=== PATIENT | male | born 1950 | race Caucasian/White ===

== ENCOUNTER 2018-10-16 21:39 | Inpatient (IN) | payer MEDICARE, MEDICAID ==
--- NOTE | 2018-10-16 21:59 | ED Physician Chart ---
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 Allergies:: Allergies Allergy/AdvReac Type Severity Reaction Status Date / Time haloperidol Allergy Unknown Verified 09/27/18 21:10 divalproex sodium Allergy Verified 09/26/18 19:13 [From Depakote] ED Review of Systems - Review of Systems General/Constitutional: No fever, No chills, No weight loss, No weakness, No diaphoresis, No edema, No loss of appetite Skin: No skin lesions, No rash, No bruising Head: No headache, No light-headedness Eyes: No loss of vision, No pain, No diplopia ENT: No earache, No nasal drainage, No sore throat, No tinnitus Neck: No neck pain, No swelling, No thyromegaly, No stiffness, No mass noted Cardio Vascular: No chest pain, No palpitations, No PND, No orthopnea, No edema Pulmonary: No SOB, No cough, No sputum, No wheezing GI: No nausea, No vomiting, No diarrhea, No pain, No melena, No hematochezia, No constipation, No hematemesis G/U: No dysuria, No frequency, No hematuria Musculoskeletal: No bone or joint pain, No back pain, No muscle pain Endocrine: No polyuria, No polydipsia Psychiatric: No prior psych history, No depression, No anxiety, No suicidal ideation Hematopoietic: No bruising, No lymphadenopathy Allergic/Immuno: No urticaria, No angioedema Neurological: No syncope, No focal symptoms, No weakness, No paresthesia, No headache, No seizure, No dizziness, No confusion, No vertigo ED Past Medical History - Past Medical History Past Medical History: HTN, DM, Other (bipolar disorder) ED Physical Exam - Physical Examination General/Constitutional: Awake, Well-developed, well-nourished, Alert, No distress, GCS 15, Non-toxic appearing, Ambulatory Head: Atraumatic Eyes: Lids, conjuctiva normal, PERRL, EOMI Skin: Nl inspection, No rash, No skin lesions, No ecchymosis, Well hydrated, No lymphadenopathy ENMT: External ears, nose nl, Nasal exam nl, Lips, teeth, gums nl Neck: Nontender, Full ROM w/o pain, No JVD, No nuchal rigidity, No bruit, No mass, No stridor Respiratory: Nl effort/Exclusion, Clear to Auscultation, No Wheeze/Rhonchi/Rales Cardio Vascular: RRR, No murmur, gallop, rubs, NL S1 S2 GI: No tenderness/rebounding/guarding, No organomegaly, No hernia, Normal BS's, Nondistended, No mass/bruits, No McBurney tenderness : No CVA tenderness Extremities: No tenderness or effusion, Full ROM, normal strength in all extremities, No edema, Normal digits & nails Neuro/Psych: Alert/oriented, DTR's symmetric, Normal sensory exam, Normal motor strength, Judgement/insight normal, Mood normal, Normal gait, No focal deficits Misc: Normal back, No paraspinal tenderness ED Assessment - Assessment General Assessment: bipolar disorder agitation for [facility] [place] ED Septic Shock - . Is Septic Shock (SBP<90, OR Lactate>4 mmol\L) present?: No ED Reassessment (Disposition) - Diagnosis Diagnosis:: bipolar disorder psychosis - Patient Disposition Discharge/Transfer:: Acute Care w/in this hosp Admitted to:: Med/Surg Condition at Disposition:: Stable
[2018-10-16 22:30] LABS: URINE SOURCE CLEAN C
[2018-10-16 22:33] LABS: URINE BILIRUBIN NEGATIVE (NEGATIVE); URINE BLOOD NEGATIVE (NEGATIVE); URINE GLUCOSE (UA) NEGATIVE (NEGATIVE); URINE KETONE NEGATIVE (NEGATIVE); URINE LEUKOCYTE ESTERASE SMALL (NEGATIVE); URINE NITRATE NEGATIVE (NEGATIVE); URINE PH 6.5 (4.6 - 8.0); URINE PROTEIN NEGATIVE (NEGATIVE); URINE UROBILINOGEN 0.2 E.U./dL (0.2 - 1.0)
[2018-10-16 23:09] LABS: URINE CLARITY SLIGHT HAZY (CLEAR); URINE COLOR YELLOW
[2018-10-16 23:16] LABS: URINE BACTERIA NONE SEEN /hpf (NONE SEEN); URINE EPITHELIAL CELLS NONE SEEN /lpf (FEW); URINE RBC NONE SEEN /hpf (0-5); URINE WBC 0-2 /hpf (0-5)
[2018-10-16 23:17] LABS: URINE MICROSCOPIC INDICATED? YES
[2018-10-17 02:09] VITALS: BP 112/73
[2018-10-17 06:54] LABS: % BASOPHILS 0.1 % (0.0-2.0); % EOSINOPHILS 2.6 % (0.0-5.0); % LYMPHOCYTES 39.9 % (20.0-50.0); % MONOCYTES 9.6 % (2.0-10.0); % NEUTROPHILS 47.8 % (40.0-80.0); EOSINOPHILE ABSOLUTE 0.2 Th/cmm (0.1-0.4); HEMATOCRIT 45.8 % (41.0-60); LYMPHOCYTE ABSOLUTE 2.9 Th/cmm (1.5-3.0); MEAN CELL VOLUME 88.7 fl (80-99); MEAN CORPUSCULAR HGB CONC 32.7 pg (28.0-36.0); MONOCYTE ABSOLUTE 0.7 Th/cmm (0.3-1.0); NEUTROPHILE ABSOLUTE 3.5 Th/cmm (1.8-8.0); PLATELET COUNT 285 Th/cmm (150-400); RED BLOOD COUNT 5.17 Mil/cmm (3.80-5.80); RED CELL DISTRIBUTION WIDTH 12.3 % (11.5-20.0); WHITE BLOOD COUNT 7.3 Th/cmm (4.8-10.8)
[2018-10-17 06:59] LABS: ALB/GLOB RATIO 1.4 (1.0-1.8); ALBUMIN 3.7 gm/dL (4.2-5.5); ALKALINE PHOSPHATASE 74 U/L (34-104); ANION GAP 8.4 (7.0-16.0); BILIRUBIN,TOTAL 0.3 mg/dL (0.3-1.0); BUN - UREA NITROGEN 13 mg/dL (7-25); CALCIUM SERUM 8.8 mg/dL (8.6-10.3); CARBON DIOXIDE 29.8 mEq/L (21.0-31.0); CHLORIDE 107 mEq/L (98-107); CREATININE - SERUM 0.8 mg/dL (0.7-1.3); GFR AFRICAN-AMERICAN > 60.0 ml/min (>90); GFR NON AFRICAN-AMERICAN > 60.0 ml/min; GLUCOSE 101 mg/dL (70-105); POTASSIUM SERUM 4.2 mEq/L (3.5-5.1); SGOT 11 U/L (13-39); SGPT/ALT 8 U/L (7-52); SODIUM SERUM 141 mEq/L (136-145); TOTAL PROTEIN,SERUM 6.3 gm/dL (6.0-8.3)
[2018-10-17] MEDS: Multivitamin w/ Minerals Tab PO SCH (08:25)
[2018-10-17] MEDS ORDERED: Non-Formulary Item 1 EA (Aripiprazole [Abilify] 20 MG) PO SCH (21:00)
--- NOTE | 2018-10-18 05:39 | Psychiatric Evaluation ---
DATE OF SERVICE: 10/17/2018 IDENTIFYING DATA: The patient is a 67-year-old male resident of a correction facility. Information obtained by directly interviewing the patient as well as reviewing the admission papers. JUSTIFICATION FOR HOSPITALIZATION: The patient is admitted here for his acute mood swings and psychosis. CHIEF COMPLAINT: "I don't care." HISTORY OF PRESENT ILLNESS: This is one of multiple psychiatric hospitalizations for this patient, who has been diagnosed to have schizoaffective disorder and has been under my care and was recently discharged and placed in a correction facility, but following the discharge, the patient is reported to be still testing the limits and has not been able to contact with safety. The patient has been screaming and yelling. Since the discharge on 10/05/2018 and hence the patient has to be admitted for stabilization. PAST PSYCHIATRIC HISTORY: Please refer to the above. The patient has been diagnosed to have schizoaffective disorder and had been followed up by me on an outpatient basis. MEDICAL HISTORY: Physical examination is requested to be done by Dr. Chau. SUBSTANCE ABUSE HISTORY: None. PHYSICAL OR SEXUAL ABUSE HISTORY: None. LEGAL PROBLEMS: None at this time. STRENGTH AND ASSETS: The patient is in good physical health. MENTAL STATUS EXAMINATION: The patient is a 67-year-old, looking his stated age, superficially cooperative, sexually preoccupied. Speech is noted to be pressured. Insight and judgment are very much impaired. Impulse control is very poor. The patient is hyperactive. The patient has no insight into his illness. Coping skills are noted to be extremely poor at this time. The patient has been testing the limits. The patient is very demanding and has been verbally abusive towards the staff members. The patient is alert and oriented x 3. Attention span and concentration are noted to be poor. The patient is not able to answer the questions that are asked to him. The patient has been going on a tangent. The patient's behavior is ____ danger to self and others at this time. DIAGNOSTIC IMPRESSION: AXIS I: Schizoaffective disorder. AXIS II: None. AXIS III: As per Dr. Chau. IMMEDIATE TREATMENT PLAN: The patient is going to be observed on inpatient unit, provided with supportive psychotherapy. The patient is going to be closely monitored. The patient is going to be stabilized. Once the patient is stabilized, the patient is going to be discharged back to the facility for followup on outpatient basis. JOB# [id number]
[2018-10-18] MEDS: Multivitamin w/ Minerals Tab PO SCH (07:59)
[2018-10-18 09:00] LABS: CHOLESTEROL 101 mg/dL (<200); HDL -HIGH DENSITY LIPOPROTEIN 36 mg/dL (23-92); TRIGLYCERIDES 105 mg/dL (<150)
--- NOTE | 2018-10-18 12:08 | Internal Medicine Prog Note ---
Internal Medicine Subjective - Subjective Patient seen and examined:: chart reviewed Patient is:: awake, agitated Per staff patient has:: no adverse event, no episodes of fall Internal Medicine Objective - Results Result Diagrams: 10/17/18 06:11 10/17/18 06:11 Recent Labs: Laboratory Last Values WBC 7.3 Th/cmm (4.8-10.8) 10/17/18 06:11 RBC 5.17 Mil/cmm (3.80-5.80) 10/17/18 06:11 Hgb 15.0 gm/dL (12-16) 10/17/18 06:11 Hct 45.8 % (41.0-60) 10/17/18 06:11 MCV 88.7 fl (80-99) 10/17/18 06:11 MCH 29.0 pg (27.0-31.0) 10/17/18 06:11 MCHC Differential 32.7 pg (28.0-36.0) 10/17/18 06:11 RDW 12.3 % (11.5-20.0) 10/17/18 06:11 Plt Count 285 Th/cmm (150-400) 10/17/18 06:11 MPV 8.0 fl 10/17/18 06:11 Neutrophils % 47.8 % (40.0-80.0) 10/17/18 06:11 Lymphocytes % 39.9 % (20.0-50.0) 10/17/18 06:11 Monocytes % 9.6 % (2.0-10.0) 10/17/18 06:11 Eosinophils % 2.6 % (0.0-5.0) 10/17/18 06:11 Basophils % 0.1 % (0.0-2.0) 10/17/18 06:11 Sodium 141 mEq/L (136-145) 10/17/18 06:11 Potassium 4.2 mEq/L (3.5-5.1) 10/17/18 06:11 Chloride 107 mEq/L (98-107) 10/17/18 06:11 Carbon Dioxide 29.8 mEq/L (21.0-31.0) 10/17/18 06:11 Anion Gap 8.4 (7.0-16.0) 10/17/18 06:11 BUN 13 mg/dL (7-25) 10/17/18 06:11 Creatinine 0.8 mg/dL (0.7-1.3) 10/17/18 06:11 Est GFR ( Amer) > 60.0 ml/min (>90) 10/17/18 06:11 Est GFR (Non-Af Amer) > 60.0 ml/min 10/17/18 06:11 BUN/Creatinine Ratio 16.3 10/17/18 06:11 Glucose 101 mg/dL (70-105) 10/17/18 06:11 Calcium 8.8 mg/dL (8.6-10.3) 10/17/18 06:11 Total Bilirubin 0.3 mg/dL (0.3-1.0) 10/17/18 06:11 AST 11 U/L (13-39) L 10/17/18 06:11 ALT 8 U/L (7-52) 10/17/18 06:11 Alkaline Phosphatase 74 U/L (34-104) 10/17/18 06:11 Total Protein 6.3 gm/dL (6.0-8.3) 10/17/18 06:11 Albumin 3.7 gm/dL (4.2-5.5) L 10/17/18 06:11 Globulin 2.6 gm/dL 10/17/18 06:11 Albumin/Globulin Ratio 1.4 (1.0-1.8) 10/17/18 06:11 Triglycerides 105 mg/dL (<150) 10/18/18 08:35 Cholesterol 101 mg/dL (<200) 10/18/18 08:35 LDL Cholesterol Direct 63 mg/dL (75-193) L 10/18/18 08:35 HDL Cholesterol 36 mg/dL (23-92) 10/18/18 08:35 Urine Source CLEAN C 10/16/18 22:00 Urine Color YELLOW 10/16/18 22:00 Urine Clarity SLIGHT HAZY (CLEAR) 10/16/18 22:00 Urine pH 6.5 (4.6 - 8.0) 10/16/18 22:00 Ur Specific [place] 1.015 (1.005-1.030) 10/16/18 22:00 Urine Protein NEGATIVE mg/dL (NEGATIVE) 10/16/18 22:00 Urine Glucose (UA) NEGATIVE mg/dL (NEGATIVE) 10/16/18 22:00 Urine Ketones NEGATIVE mg/dL (NEGATIVE) 10/16/18 22:00 Urine Blood NEGATIVE (NEGATIVE) 10/16/18 22:00 Urine Nitrate NEGATIVE (NEGATIVE) 10/16/18 22:00 Urine Bilirubin NEGATIVE (NEGATIVE) 10/16/18 22:00 Urine Urobilinogen 0.2 E.U./dL (0.2 - 1.0) 10/16/18 22:00 Ur Leukocyte Esterase SMALL (NEGATIVE) H 10/16/18 22:00 Urine RBC NONE SEEN /hpf (0-5) 10/16/18 22:00 Urine WBC 0-2 /hpf (0-5) 10/16/18 22:00 Ur Epithelial Cells NONE SEEN /lpf (FEW) 10/16/18 22:00 Other Crystals Not Reportable 10/16/18 22:00 Urine Bacteria NONE SEEN /hpf (NONE SEEN) 10/16/18 22:00 - Physical Exam Vitals and I&O: Vital Signs Temp 97.7 F 10/18/18 06:46 Pulse 87 10/18/18 06:46 Resp 20 10/18/18 08:00 BP 110/77 10/18/18 06:46 Pulse Ox 97 10/18/18 06:46 Intake & Output 10/17/18 10/18/18 10/18/18 18:59 06:59 18:59 Intake Total 900 120 Balance 900 120 Intake: Oral 900 120 Other: # Voids 3 3 # Bowel Movements 1 Active Medications: Current Medications Acetaminophen (Tylenol) 650 mg PO Q4H PRN PRN Reason: Pain Or Fever above 101 Stop: 12/16/18 02:26 Aripiprazole (Abilify) 15 mg PO HS CHRISTY; Protocol Stop: 12/16/18 20:59 Last Admin: 10/17/18 21:45 Dose: Not Given Clonazepam (Klonopin) 0.5 mg PO BID CHRISTY; Protocol Stop: 12/16/18 08:59 Last Admin: 10/18/18 07:59 Dose: 0.5 mg Lorazepam (Ativan) 1 mg PO Q12HR PRN; Protocol PRN Reason: Agitation Stop: 12/16/18 02:26 Temazepam (Restoril) 15 mg PO HS PRN; Protocol PRN Reason: Insomnia Stop: 12/16/18 15:38 General: demented HEENT: NC/AT Neck: Supple Lungs: CTAB Cardiovascular: RRR, Normal S1, Normal S2 Abdomen: soft Extremities: clear Neurological: no change Internal Medicine Assmt/Plan - Assessment Assessment: schizoaffective disorder - Plan Plan: as per psych will monitor
--- NOTE | 2018-10-18 21:50 | Progress Notes ---
DATE: 10/18/2018 SUBJECTIVE: Staff was spoken to. The patient is interviewed. Mood is noted to be irritable. Affect is constricted. Insight and judgment are noted to be still impaired. Impulse control is noted to be poor. The patient is reporting that he is compliant with the medication and he has a place to go. He states that he wants to go to a board and care in [place]. The patient is currently on Abilify and temazepam and has been able to tolerate the medication. ASSESSMENT: The patient is still impulsive and having acute mood swings. PLAN: Continue the patient with the current medications and I encouraged the patient to verbalize the concerns rather than to act out. The patient is not ready to be discharged to a lower level of care yet. JOB# [id number]
[2018-10-19] MEDS: Multivitamin w/ Minerals Tab PO SCH (08:18)
--- NOTE | 2018-10-19 12:45 | Internal Medicine Prog Note ---
Internal Medicine Subjective - Subjective Service Date: 10/19/18 Patient seen and examined:: chart reviewed Patient is:: awake, verbal, agitated, other (Mood swings and Psychotic.) Patient Complaints of:: other (patient is combative.) Per staff patient has:: no adverse event, no episodes of fall Internal Medicine Objective - Results Result Diagrams: 10/17/18 06:11 10/17/18 06:11 Recent Labs: Laboratory Last Values WBC 7.3 Th/cmm (4.8-10.8) 10/17/18 06:11 RBC 5.17 Mil/cmm (3.80-5.80) 10/17/18 06:11 Hgb 15.0 gm/dL (12-16) 10/17/18 06:11 Hct 45.8 % (41.0-60) 10/17/18 06:11 MCV 88.7 fl (80-99) 10/17/18 06:11 MCH 29.0 pg (27.0-31.0) 10/17/18 06:11 MCHC Differential 32.7 pg (28.0-36.0) 10/17/18 06:11 RDW 12.3 % (11.5-20.0) 10/17/18 06:11 Plt Count 285 Th/cmm (150-400) 10/17/18 06:11 MPV 8.0 fl 10/17/18 06:11 Neutrophils % 47.8 % (40.0-80.0) 10/17/18 06:11 Lymphocytes % 39.9 % (20.0-50.0) 10/17/18 06:11 Monocytes % 9.6 % (2.0-10.0) 10/17/18 06:11 Eosinophils % 2.6 % (0.0-5.0) 10/17/18 06:11 Basophils % 0.1 % (0.0-2.0) 10/17/18 06:11 Sodium 141 mEq/L (136-145) 10/17/18 06:11 Potassium 4.2 mEq/L (3.5-5.1) 10/17/18 06:11 Chloride 107 mEq/L (98-107) 10/17/18 06:11 Carbon Dioxide 29.8 mEq/L (21.0-31.0) 10/17/18 06:11 Anion Gap 8.4 (7.0-16.0) 10/17/18 06:11 BUN 13 mg/dL (7-25) 10/17/18 06:11 Creatinine 0.8 mg/dL (0.7-1.3) 10/17/18 06:11 Est GFR ( Amer) > 60.0 ml/min (>90) 10/17/18 06:11 Est GFR (Non-Af Amer) > 60.0 ml/min 10/17/18 06:11 BUN/Creatinine Ratio 16.3 10/17/18 06:11 Glucose 101 mg/dL (70-105) 10/17/18 06:11 Calcium 8.8 mg/dL (8.6-10.3) 10/17/18 06:11 Total Bilirubin 0.3 mg/dL (0.3-1.0) 10/17/18 06:11 AST 11 U/L (13-39) L 10/17/18 06:11 ALT 8 U/L (7-52) 10/17/18 06:11 Alkaline Phosphatase 74 U/L (34-104) 10/17/18 06:11 Total Protein 6.3 gm/dL (6.0-8.3) 10/17/18 06:11 Albumin 3.7 gm/dL (4.2-5.5) L 10/17/18 06:11 Globulin 2.6 gm/dL 10/17/18 06:11 Albumin/Globulin Ratio 1.4 (1.0-1.8) 10/17/18 06:11 Triglycerides 105 mg/dL (<150) 10/18/18 08:35 Cholesterol 101 mg/dL (<200) 10/18/18 08:35 LDL Cholesterol Direct 63 mg/dL (75-193) L 10/18/18 08:35 HDL Cholesterol 36 mg/dL (23-92) 10/18/18 08:35 Urine Source CLEAN C 10/16/18 22:00 Urine Color YELLOW 10/16/18 22:00 Urine Clarity SLIGHT HAZY (CLEAR) 10/16/18 22:00 Urine pH 6.5 (4.6 - 8.0) 10/16/18 22:00 Ur Specific [place] 1.015 (1.005-1.030) 10/16/18 22:00 Urine Protein NEGATIVE mg/dL (NEGATIVE) 10/16/18 22:00 Urine Glucose (UA) NEGATIVE mg/dL (NEGATIVE) 10/16/18 22:00 Urine Ketones NEGATIVE mg/dL (NEGATIVE) 10/16/18 22:00 Urine Blood NEGATIVE (NEGATIVE) 10/16/18 22:00 Urine Nitrate NEGATIVE (NEGATIVE) 10/16/18 22:00 Urine Bilirubin NEGATIVE (NEGATIVE) 10/16/18 22:00 Urine Urobilinogen 0.2 E.U./dL (0.2 - 1.0) 10/16/18 22:00 Ur Leukocyte Esterase SMALL (NEGATIVE) H 10/16/18 22:00 Urine RBC NONE SEEN /hpf (0-5) 10/16/18 22:00 Urine WBC 0-2 /hpf (0-5) 10/16/18 22:00 Ur Epithelial Cells NONE SEEN /lpf (FEW) 10/16/18 22:00 Other Crystals Not Reportable 10/16/18 22:00 Urine Bacteria NONE SEEN /hpf (NONE SEEN) 10/16/18 22:00 - Physical Exam Vitals and I&O: Vital Signs Temp 98.0 F 10/18/18 21:02 Pulse 74 10/18/18 21:02 Resp 20 10/18/18 21:02 BP 117/73 10/18/18 21:02 Pulse Ox 99 10/18/18 21:02 Intake & Output 10/18/18 10/19/18 10/19/18 18:59 06:59 18:59 Intake Total 1700 180 Balance 1700 180 Intake: Oral 1700 180 Other: # Voids 4 1 # Bowel Movements 2 0 Active Medications: Current Medications Acetaminophen (Tylenol) 650 mg PO Q4H PRN PRN Reason: Pain Or Fever above 101 Stop: 12/16/18 02:26 Last Admin: 10/18/18 20:37 Dose: 650 mg Aripiprazole (Abilify) 15 mg PO HS CHRISTY; Protocol Stop: 12/16/18 20:59 Last Admin: 10/18/18 20:37 Dose: 15 mg Clonazepam (Klonopin) 0.5 mg PO BID CHRISTY; Protocol Stop: 12/16/18 08:59 Last Admin: 10/19/18 08:21 Dose: Not Given Lorazepam (Ativan) 1 mg PO Q12HR PRN; Protocol PRN Reason: Agitation Stop: 12/16/18 02:26 Last Admin: 10/19/18 08:19 Dose: 1 mg Temazepam (Restoril) 15 mg PO HS PRN; Protocol PRN Reason: Insomnia Stop: 12/16/18 15:38 General: demented HEENT: NC/AT Neck: Supple Lungs: CTAB Cardiovascular: RRR, Normal S1, Normal S2 Abdomen: soft Extremities: clear Neurological: no change Internal Medicine Assmt/Plan - Assessment Assessment: Schizoaffective disorder Mood swings and Psychosis. - Plan Plan: as per psych will monitor Nutritional Asmnt/Malnutr-PDOC - Dietary Evaluation Malnutrition Findings (Please click <Entered> for more info): see orders.
--- NOTE | 2018-10-19 23:24 | Consultation ---
DATE OF CONSULTATION: 10/19/2018 REFERRING PHYSICIAN: Faustino Joseph M.D. TYPE OF CONSULTATION: Psychology. HISTORY OF PRESENT ILLNESS: The patient is a 67-year-old male. The following is by record review and by the patient's self-report. The patient is being admitted due to acute mood swings and possible psychosis. Upon interview, the patient stated that he does not care that he is in the hospital and did not care to respond to the clinical interview questions. The staff at the patient's facility report that he had been testing the limits with the staff and was exhibiting screaming and yelling episodes. The patient is known to this mortgage loan underwriter from his previous hospitalization as well as a shelter facility placement. The patient did not provide much information during the clinical interview. PAST MEDICAL HISTORY: Please see history and physical by Dr. Chau. PAST PSYCHIATRIC HISTORY: The patient has multiple previous hospitalizations. The patient is under the care of a psychiatrist and psychologist at his facility. The patient has a history of schizoaffective disorder. SUBSTANCE ABUSE HISTORY: The patient declined to answer these questions. PSYCHOSOCIAL HISTORY: The patient did not answer questions about occupational or educational history. The patient states that he is a [employer]. The patient states that his father and [id number] are involved in his care. The patient is single with no children. The patient denied any history of physical or sexual abuse. The patient denies any current legal problems. MENTAL STATUS EXAMINATION: The patient appears to be of stated age. The patient's attitude is superficially cooperative. Eye contact is fair to poor. Speech is pressured. The patient's thought content includes sexual preoccupation. The patient denied any auditory or visual hallucinations. There may be paranoid ideation present. The patient's behavior on the unit has been poorly redirectable; however, the staff indicates the patient has not had any recent yelling episodes. Impulse control is inadequate. Concentration is poor. The patient appears to be hyperactive. The patient's sensorium is alert and oriented to self and place only. The patient did not participate in the memory assessment. He did not participate in the interpretation of proverbs. Staff indicates that the patient has been demanding and testing limits. Insight is impaired. Judgment is impaired. DIAGNOSTIC IMPRESSION: AXIS I: Schizoaffective disorder. AXIS II: Deferred. AXIS III: Per Dr. Chau. TREATMENT PLAN: The patient has been seen by Dr. Joseph for psychiatric evaluation and for the management of the patient's psychotropic medications. We will provide supportive psychotherapy to include reality orientation, differentiation, and integration. We will provide limit setting and de-escalation. We will encourage the patient to verbally contract for safety on a daily basis. We will encourage the patient to verbalize his concerns versus acting out. We will provide coping strategies for chronic severe mental illness. We will continue to provide supportive therapy and motivational enhancement for the patient to become compliant and stay comply with all aspects of his care and treatment. We will encourage the patient to demonstrate emotional and self-regulation prior to his discharge. Thank you, Dr. Joseph, for this consult and the opportunity to participate in this patient's care. JOB# [id number] MTDD
--- NOTE | 2018-10-20 04:29 | Progress Notes ---
DATE: 10/19/2018 PSYCHIATRIC PROGRESS NOTE SUBJECTIVE: Staff was spoken to. The patient is interviewed. Mood is noted to be irritable. Affect is constricted. Insight and judgment at this time are noted to still impaired. Impulse control is noted to be limited. The patient is stating that he has to go back to work and he cannot be in here. The patient has been having difficult time to cope with the stress. No side effects to the medications are noted. ASSESSMENT: The patient is still grossly psychotic and has been gravely disabled and has no place to return to. PLAN: To continue the patient with the supportive therapy. I encouraged the patient to verbalize the concerns rather than to act out. JOB# [id number]
[2018-10-20] MEDS: Multivitamin w/ Minerals Tab PO SCH (09:06)
--- NOTE | 2018-10-20 21:23 | Internal Medicine Prog Note ---
Internal Medicine Subjective - Subjective Service Date: 10/20/18 Patient is:: awake, verbal, agitated, other (Mood swings and Psychotic.) Patient Complaints of:: other (patient is combative.) Per staff patient has:: no adverse event, no episodes of fall Internal Medicine Objective - Results Result Diagrams: 10/17/18 06:11 10/17/18 06:11 Recent Labs: Laboratory Last Values WBC 7.3 Th/cmm (4.8-10.8) 10/17/18 06:11 RBC 5.17 Mil/cmm (3.80-5.80) 10/17/18 06:11 Hgb 15.0 gm/dL (12-16) 10/17/18 06:11 Hct 45.8 % (41.0-60) 10/17/18 06:11 MCV 88.7 fl (80-99) 10/17/18 06:11 MCH 29.0 pg (27.0-31.0) 10/17/18 06:11 MCHC Differential 32.7 pg (28.0-36.0) 10/17/18 06:11 RDW 12.3 % (11.5-20.0) 10/17/18 06:11 Plt Count 285 Th/cmm (150-400) 10/17/18 06:11 MPV 8.0 fl 10/17/18 06:11 Neutrophils % 47.8 % (40.0-80.0) 10/17/18 06:11 Lymphocytes % 39.9 % (20.0-50.0) 10/17/18 06:11 Monocytes % 9.6 % (2.0-10.0) 10/17/18 06:11 Eosinophils % 2.6 % (0.0-5.0) 10/17/18 06:11 Basophils % 0.1 % (0.0-2.0) 10/17/18 06:11 Sodium 141 mEq/L (136-145) 10/17/18 06:11 Potassium 4.2 mEq/L (3.5-5.1) 10/17/18 06:11 Chloride 107 mEq/L (98-107) 10/17/18 06:11 Carbon Dioxide 29.8 mEq/L (21.0-31.0) 10/17/18 06:11 Anion Gap 8.4 (7.0-16.0) 10/17/18 06:11 BUN 13 mg/dL (7-25) 10/17/18 06:11 Creatinine 0.8 mg/dL (0.7-1.3) 10/17/18 06:11 Est GFR ( Amer) > 60.0 ml/min (>90) 10/17/18 06:11 Est GFR (Non-Af Amer) > 60.0 ml/min 10/17/18 06:11 BUN/Creatinine Ratio 16.3 10/17/18 06:11 Glucose 101 mg/dL (70-105) 10/17/18 06:11 Calcium 8.8 mg/dL (8.6-10.3) 10/17/18 06:11 Total Bilirubin 0.3 mg/dL (0.3-1.0) 10/17/18 06:11 AST 11 U/L (13-39) L 10/17/18 06:11 ALT 8 U/L (7-52) 10/17/18 06:11 Alkaline Phosphatase 74 U/L (34-104) 10/17/18 06:11 Total Protein 6.3 gm/dL (6.0-8.3) 10/17/18 06:11 Albumin 3.7 gm/dL (4.2-5.5) L 10/17/18 06:11 Globulin 2.6 gm/dL 10/17/18 06:11 Albumin/Globulin Ratio 1.4 (1.0-1.8) 10/17/18 06:11 Triglycerides 105 mg/dL (<150) 10/18/18 08:35 Cholesterol 101 mg/dL (<200) 10/18/18 08:35 LDL Cholesterol Direct 63 mg/dL (75-193) L 10/18/18 08:35 HDL Cholesterol 36 mg/dL (23-92) 10/18/18 08:35 Urine Source CLEAN C 10/16/18 22:00 Urine Color YELLOW 10/16/18 22:00 Urine Clarity SLIGHT HAZY (CLEAR) 10/16/18 22:00 Urine pH 6.5 (4.6 - 8.0) 10/16/18 22:00 Ur Specific [place] 1.015 (1.005-1.030) 10/16/18 22:00 Urine Protein NEGATIVE mg/dL (NEGATIVE) 10/16/18 22:00 Urine Glucose (UA) NEGATIVE mg/dL (NEGATIVE) 10/16/18 22:00 Urine Ketones NEGATIVE mg/dL (NEGATIVE) 10/16/18 22:00 Urine Blood NEGATIVE (NEGATIVE) 10/16/18 22:00 Urine Nitrate NEGATIVE (NEGATIVE) 10/16/18 22:00 Urine Bilirubin NEGATIVE (NEGATIVE) 10/16/18 22:00 Urine Urobilinogen 0.2 E.U./dL (0.2 - 1.0) 10/16/18 22:00 Ur Leukocyte Esterase SMALL (NEGATIVE) H 10/16/18 22:00 Urine RBC NONE SEEN /hpf (0-5) 10/16/18 22:00 Urine WBC 0-2 /hpf (0-5) 10/16/18 22:00 Ur Epithelial Cells NONE SEEN /lpf (FEW) 10/16/18 22:00 Other Crystals Not Reportable 10/16/18 22:00 Urine Bacteria NONE SEEN /hpf (NONE SEEN) 10/16/18 22:00 - Physical Exam Vitals and I&O: Vital Signs Temp 97.9 F 10/20/18 20:49 Pulse 89 10/20/18 20:49 Resp 19 10/20/18 20:49 BP 98/76 10/20/18 20:49 Pulse Ox 97 10/20/18 20:49 Intake & Output 10/20/18 10/20/18 10/21/18 06:59 18:59 06:59 Intake Total 180 1000 280 Balance 180 1000 280 Intake: Oral 180 1000 280 Other: # Voids 3 4 2 # Bowel Movements 0 1 0 Active Medications: Current Medications Acetaminophen (Tylenol) 650 mg PO Q4H PRN PRN Reason: Pain Or Fever above 101 Stop: 12/16/18 02:26 Last Admin: 10/18/18 20:37 Dose: 650 mg Aripiprazole (Abilify) 15 mg PO HS CHRISTY; Protocol Stop: 12/16/18 20:59 Last Admin: 10/20/18 20:48 Dose: 15 mg Clonazepam (Klonopin) 0.5 mg PO BID CHRISTY; Protocol Stop: 12/16/18 08:59 Last Admin: 10/20/18 16:56 Dose: 0.5 mg Lorazepam (Ativan) 1 mg PO Q12HR PRN; Protocol PRN Reason: Agitation Stop: 12/16/18 02:26 Last Admin: 10/20/18 20:49 Dose: 1 mg Temazepam (Restoril) 15 mg PO HS PRN; Protocol PRN Reason: Insomnia Stop: 12/16/18 15:38 Last Admin: 10/20/18 20:48 Dose: 15 mg General: demented HEENT: NC/AT Neck: Supple Lungs: CTAB Cardiovascular: RRR, Normal S1, Normal S2 Abdomen: soft Extremities: clear Neurological: no change Internal Medicine Assmt/Plan - Assessment Assessment: Schizoaffective disorder Mood swings and Psychosis. - Plan Plan: as per psych will monitor
--- NOTE | 2018-10-21 01:52 | Progress Notes ---
DATE: 10/20/2018 SUBJECTIVE: Staff was spoken to. The patient is interviewed. Mood is noted to be irritable. Affect is constricted. Insight and judgment are noted to be still impaired. Impulse control is noted to be limited. The patient is stating that the previous placement has been keeping all his belongings and he is very much worried that they are valuable and he needs to go there to pick it up. The patient has been very paranoid and patient is stating that he will have been trying to kick him out of the facility. ASSESSMENT: The patient is still impulsive and mood swings are still a concern. PLAN: To continue the patient with the current medications and followup. JOB# [id number]
[2018-10-21] MEDS: Multivitamin w/ Minerals Tab PO SCH (09:33)
--- NOTE | 2018-10-21 15:45 | Progress Notes ---
DATE: 10/21/2018 SUBJECTIVE: Staff was spoken to. The patient is interviewed. Mood is noted to be irritable. Affect is constricted. The patient is stating that he has been trying to get back to the facility and is stating that no one is getting of the phones. The patient is stating that he has left valuable stuff over there and he needs to be getting that . PLAN: The patient has been having mood swings and the patient has been placed on Depakote and the patient is going to be closely monitored with it. JOB# [id number]
--- NOTE | 2018-10-21 17:23 | Internal Medicine Prog Note ---
Internal Medicine Subjective - Subjective Service Date: 10/21/18 Patient seen and examined:: with staff, chart reviewed Patient is:: awake, verbal, agitated, confused, other (Mood swings and Psychotic.) Patient Complaints of:: other (patient is combative.) Per staff patient has:: no adverse event, no episodes of fall Internal Medicine Objective - Results Result Diagrams: 10/17/18 06:11 10/17/18 06:11 Recent Labs: Laboratory Last Values WBC 7.3 Th/cmm (4.8-10.8) 10/17/18 06:11 RBC 5.17 Mil/cmm (3.80-5.80) 10/17/18 06:11 Hgb 15.0 gm/dL (12-16) 10/17/18 06:11 Hct 45.8 % (41.0-60) 10/17/18 06:11 MCV 88.7 fl (80-99) 10/17/18 06:11 MCH 29.0 pg (27.0-31.0) 10/17/18 06:11 MCHC Differential 32.7 pg (28.0-36.0) 10/17/18 06:11 RDW 12.3 % (11.5-20.0) 10/17/18 06:11 Plt Count 285 Th/cmm (150-400) 10/17/18 06:11 MPV 8.0 fl 10/17/18 06:11 Neutrophils % 47.8 % (40.0-80.0) 10/17/18 06:11 Lymphocytes % 39.9 % (20.0-50.0) 10/17/18 06:11 Monocytes % 9.6 % (2.0-10.0) 10/17/18 06:11 Eosinophils % 2.6 % (0.0-5.0) 10/17/18 06:11 Basophils % 0.1 % (0.0-2.0) 10/17/18 06:11 Sodium 141 mEq/L (136-145) 10/17/18 06:11 Potassium 4.2 mEq/L (3.5-5.1) 10/17/18 06:11 Chloride 107 mEq/L (98-107) 10/17/18 06:11 Carbon Dioxide 29.8 mEq/L (21.0-31.0) 10/17/18 06:11 Anion Gap 8.4 (7.0-16.0) 10/17/18 06:11 BUN 13 mg/dL (7-25) 10/17/18 06:11 Creatinine 0.8 mg/dL (0.7-1.3) 10/17/18 06:11 Est GFR ( Amer) > 60.0 ml/min (>90) 10/17/18 06:11 Est GFR (Non-Af Amer) > 60.0 ml/min 10/17/18 06:11 BUN/Creatinine Ratio 16.3 10/17/18 06:11 Glucose 101 mg/dL (70-105) 10/17/18 06:11 Calcium 8.8 mg/dL (8.6-10.3) 10/17/18 06:11 Total Bilirubin 0.3 mg/dL (0.3-1.0) 10/17/18 06:11 AST 11 U/L (13-39) L 10/17/18 06:11 ALT 8 U/L (7-52) 10/17/18 06:11 Alkaline Phosphatase 74 U/L (34-104) 10/17/18 06:11 Total Protein 6.3 gm/dL (6.0-8.3) 10/17/18 06:11 Albumin 3.7 gm/dL (4.2-5.5) L 10/17/18 06:11 Globulin 2.6 gm/dL 10/17/18 06:11 Albumin/Globulin Ratio 1.4 (1.0-1.8) 10/17/18 06:11 Triglycerides 105 mg/dL (<150) 10/18/18 08:35 Cholesterol 101 mg/dL (<200) 10/18/18 08:35 LDL Cholesterol Direct 63 mg/dL (75-193) L 10/18/18 08:35 HDL Cholesterol 36 mg/dL (23-92) 10/18/18 08:35 Urine Source CLEAN C 10/16/18 22:00 Urine Color YELLOW 10/16/18 22:00 Urine Clarity SLIGHT HAZY (CLEAR) 10/16/18 22:00 Urine pH 6.5 (4.6 - 8.0) 10/16/18 22:00 Ur Specific [place] 1.015 (1.005-1.030) 10/16/18 22:00 Urine Protein NEGATIVE mg/dL (NEGATIVE) 10/16/18 22:00 Urine Glucose (UA) NEGATIVE mg/dL (NEGATIVE) 10/16/18 22:00 Urine Ketones NEGATIVE mg/dL (NEGATIVE) 10/16/18 22:00 Urine Blood NEGATIVE (NEGATIVE) 10/16/18 22:00 Urine Nitrate NEGATIVE (NEGATIVE) 10/16/18 22:00 Urine Bilirubin NEGATIVE (NEGATIVE) 10/16/18 22:00 Urine Urobilinogen 0.2 E.U./dL (0.2 - 1.0) 10/16/18 22:00 Ur Leukocyte Esterase SMALL (NEGATIVE) H 10/16/18 22:00 Urine RBC NONE SEEN /hpf (0-5) 10/16/18 22:00 Urine WBC 0-2 /hpf (0-5) 10/16/18 22:00 Ur Epithelial Cells NONE SEEN /lpf (FEW) 10/16/18 22:00 Other Crystals Not Reportable 10/16/18 22:00 Urine Bacteria NONE SEEN /hpf (NONE SEEN) 10/16/18 22:00 - Physical Exam Vitals and I&O: Vital Signs Temp 97.4 F 10/21/18 14:00 Pulse 76 10/21/18 14:00 Resp 18 10/21/18 14:00 BP 118/76 10/21/18 14:00 Pulse Ox 97 10/21/18 14:00 Intake & Output 10/20/18 10/21/18 10/21/18 18:59 06:59 18:59 Intake Total 1000 280 Balance 1000 280 Intake: Oral 1000 280 Other: # Voids 4 3 # Bowel Movements 1 0 Active Medications: Current Medications Acetaminophen (Tylenol) 650 mg PO Q4H PRN PRN Reason: Pain Or Fever above 101 Stop: 12/16/18 02:26 Last Admin: 10/18/18 20:37 Dose: 650 mg Aripiprazole (Abilify) 20 mg PO HS [facility]; Protocol Stop: 12/20/18 20:59 Clonazepam (Klonopin) 0.5 mg PO BID [facility]; Protocol Stop: 12/16/18 08:59 Last Admin: 10/21/18 17:03 Dose: 0.5 mg Divalproex Sodium (Depakote Dr) 250 mg PO BID [facility]; Protocol Stop: 12/20/18 08:59 Last Admin: 10/21/18 17:03 Dose: 250 mg Lorazepam (Ativan) 1 mg PO Q12HR PRN; Protocol PRN Reason: Agitation Stop: 12/16/18 02:26 Last Admin: 10/20/18 20:49 Dose: 1 mg Temazepam (Restoril) 15 mg PO HS PRN; Protocol PRN Reason: Insomnia Stop: 12/16/18 15:38 Last Admin: 10/20/18 20:48 Dose: 15 mg General: demented HEENT: NC/AT Neck: Supple Lungs: CTAB Cardiovascular: RRR, Normal S1, Normal S2 Abdomen: soft Extremities: clear Neurological: no change Internal Medicine Assmt/Plan - Assessment Assessment: Schizoaffective disorder Mood swings and Psychosis. - Plan Plan: as per psych will monitor Nutritional Asmnt/Malnutr-PDOC - Dietary Evaluation Malnutrition Findings (Please click <Entered> for more info): see orders
[2018-10-22] MEDS: Multivitamin w/ Minerals Tab PO SCH (08:42)
--- NOTE | 2018-10-22 10:20 | Progress Notes ---
DATE: 10/21/2018 PSYCHOLOGY PROGRESS NOTE SUBJECTIVE: The patient is seen and is interviewed. Case is discussed with staff. The patient presents as irritable and guarded. The patient states that he is wanting to return to his facility and is worried about his belongings. The patient perseverated on this issue. The patient did become cognitively redirectable after 10-15 minutes. OBJECTIVE: Mood is irritable. Affect is constricted. Thought process shows to be confused and markedly tangential with perseveration on loss of valuable belongings. The patient denied any hallucinations or delusions. The patient's behavior has been restless but redirectable. ASSESSMENT AND PLAN: The patient continues to have mood fluctuations. We will provide de-escalation as well as reality orientation, differentiation and integration. We will provide remotivation for the patient to become compliant with all aspects of his care and treatment. We will continue to provide coping strategies for chronic mental illness. We will encourage the patient to demonstrate emotional and self-regulation prior to his discharge. We will follow up in 2-3 days to continue the present treatment. [facility]# [id number] MATTHEW
--- NOTE | 2018-10-22 18:03 | Internal Medicine Prog Note ---
Internal Medicine Subjective - Subjective Service Date: 10/22/18 Patient is:: awake, verbal, agitated, confused, other (Mood swings and Psychotic.) Patient Complaints of:: other (patient is combative.) Per staff patient has:: no adverse event, no episodes of fall Internal Medicine Objective - Results Result Diagrams: 10/17/18 06:11 10/17/18 06:11 Recent Labs: Laboratory Last Values WBC 7.3 Th/cmm (4.8-10.8) 10/17/18 06:11 RBC 5.17 Mil/cmm (3.80-5.80) 10/17/18 06:11 Hgb 15.0 gm/dL (12-16) 10/17/18 06:11 Hct 45.8 % (41.0-60) 10/17/18 06:11 MCV 88.7 fl (80-99) 10/17/18 06:11 MCH 29.0 pg (27.0-31.0) 10/17/18 06:11 MCHC Differential 32.7 pg (28.0-36.0) 10/17/18 06:11 RDW 12.3 % (11.5-20.0) 10/17/18 06:11 Plt Count 285 Th/cmm (150-400) 10/17/18 06:11 MPV 8.0 fl 10/17/18 06:11 Neutrophils % 47.8 % (40.0-80.0) 10/17/18 06:11 Lymphocytes % 39.9 % (20.0-50.0) 10/17/18 06:11 Monocytes % 9.6 % (2.0-10.0) 10/17/18 06:11 Eosinophils % 2.6 % (0.0-5.0) 10/17/18 06:11 Basophils % 0.1 % (0.0-2.0) 10/17/18 06:11 Sodium 141 mEq/L (136-145) 10/17/18 06:11 Potassium 4.2 mEq/L (3.5-5.1) 10/17/18 06:11 Chloride 107 mEq/L (98-107) 10/17/18 06:11 Carbon Dioxide 29.8 mEq/L (21.0-31.0) 10/17/18 06:11 Anion Gap 8.4 (7.0-16.0) 10/17/18 06:11 BUN 13 mg/dL (7-25) 10/17/18 06:11 Creatinine 0.8 mg/dL (0.7-1.3) 10/17/18 06:11 Est GFR ( Amer) > 60.0 ml/min (>90) 10/17/18 06:11 Est GFR (Non-Af Amer) > 60.0 ml/min 10/17/18 06:11 BUN/Creatinine Ratio 16.3 10/17/18 06:11 Glucose 101 mg/dL (70-105) 10/17/18 06:11 Calcium 8.8 mg/dL (8.6-10.3) 10/17/18 06:11 Total Bilirubin 0.3 mg/dL (0.3-1.0) 10/17/18 06:11 AST 11 U/L (13-39) L 10/17/18 06:11 ALT 8 U/L (7-52) 10/17/18 06:11 Alkaline Phosphatase 74 U/L (34-104) 10/17/18 06:11 Total Protein 6.3 gm/dL (6.0-8.3) 10/17/18 06:11 Albumin 3.7 gm/dL (4.2-5.5) L 10/17/18 06:11 Globulin 2.6 gm/dL 10/17/18 06:11 Albumin/Globulin Ratio 1.4 (1.0-1.8) 10/17/18 06:11 Triglycerides 105 mg/dL (<150) 10/18/18 08:35 Cholesterol 101 mg/dL (<200) 10/18/18 08:35 LDL Cholesterol Direct 63 mg/dL (75-193) L 10/18/18 08:35 HDL Cholesterol 36 mg/dL (23-92) 10/18/18 08:35 Urine Source CLEAN C 10/16/18 22:00 Urine Color YELLOW 10/16/18 22:00 Urine Clarity SLIGHT HAZY (CLEAR) 10/16/18 22:00 Urine pH 6.5 (4.6 - 8.0) 10/16/18 22:00 Ur Specific [place] 1.015 (1.005-1.030) 10/16/18 22:00 Urine Protein NEGATIVE mg/dL (NEGATIVE) 10/16/18 22:00 Urine Glucose (UA) NEGATIVE mg/dL (NEGATIVE) 10/16/18 22:00 Urine Ketones NEGATIVE mg/dL (NEGATIVE) 10/16/18 22:00 Urine Blood NEGATIVE (NEGATIVE) 10/16/18 22:00 Urine Nitrate NEGATIVE (NEGATIVE) 10/16/18 22:00 Urine Bilirubin NEGATIVE (NEGATIVE) 10/16/18 22:00 Urine Urobilinogen 0.2 E.U./dL (0.2 - 1.0) 10/16/18 22:00 Ur Leukocyte Esterase SMALL (NEGATIVE) H 10/16/18 22:00 Urine RBC NONE SEEN /hpf (0-5) 10/16/18 22:00 Urine WBC 0-2 /hpf (0-5) 10/16/18 22:00 Ur Epithelial Cells NONE SEEN /lpf (FEW) 10/16/18 22:00 Other Crystals Not Reportable 10/16/18 22:00 Urine Bacteria NONE SEEN /hpf (NONE SEEN) 10/16/18 22:00 - Physical Exam Vitals and I&O: Vital Signs Temp 98.4 F 10/22/18 14:00 Pulse 85 10/22/18 14:00 Resp 20 10/22/18 14:00 BP 112/56 10/22/18 14:00 Pulse Ox 97 10/22/18 14:00 Intake & Output 10/21/18 10/22/18 10/22/18 18:59 06:59 18:59 Intake Total 1250 370 Balance 1250 370 Intake: Oral 1250 370 Other: # Voids 3 1 # Bowel Movements 0 Active Medications: Current Medications Acetaminophen (Tylenol) 650 mg PO Q4H PRN PRN Reason: Pain Or Fever above 101 Stop: 12/16/18 02:26 Last Admin: 10/18/18 20:37 Dose: 650 mg Aripiprazole (Abilify) 20 mg PO HS [facility]; Protocol Stop: 12/20/18 20:59 Last Admin: 10/21/18 21:24 Dose: 20 mg Clonazepam (Klonopin) 0.5 mg PO BID [facility]; Protocol Stop: 12/16/18 08:59 Last Admin: 10/22/18 17:13 Dose: 0.5 mg Divalproex Sodium (Depakote Dr) 250 mg PO BID [facility]; Protocol Stop: 12/20/18 08:59 Last Admin: 10/22/18 17:13 Dose: 250 mg Lorazepam (Ativan) 1 mg PO Q12HR PRN; Protocol PRN Reason: Agitation Stop: 12/16/18 02:26 Last Admin: 10/20/18 20:49 Dose: 1 mg Temazepam (Restoril) 15 mg PO HS PRN; Protocol PRN Reason: Insomnia Stop: 12/16/18 15:38 Last Admin: 10/21/18 21:24 Dose: 15 mg General: demented HEENT: NC/AT Neck: Supple Lungs: CTAB Cardiovascular: RRR, Normal S1, Normal S2 Abdomen: soft Extremities: clear Neurological: no change Internal Medicine Assmt/Plan - Assessment Assessment: Schizoaffective disorder Mood swings and Psychosis. - Plan Plan: fall precautions cpm
--- NOTE | 2018-10-23 06:19 | Progress Notes ---
DATE: 10/22/2018 PSYCHIATRIC PROGRESS NOTE SUBJECTIVE: Staff was spoken to. The patient is interviewed. Mood is noted to be irritable. Affect is constricted. The patient is still having mood swings. Coping skills are noted to be poor. The patient is not accepted at the previous facility because of his mood swings and aggressive behavior. The caser has been taken a place for him. No side effects to the medications are noted at this time. The patient continues to be hyperverbal and intrusive. ASSESSMENT: The patient is still psychotic and impulsive. PLAN: To continue the patient with the current medications and followup. JOB# [id number]
[2018-10-23] MEDS: Multivitamin w/ Minerals Tab PO SCH (09:04)
--- NOTE | 2018-10-23 11:40 | Internal Medicine Prog Note ---
Internal Medicine Subjective - Subjective Service Date: 10/23/18 Patient seen and examined:: with staff, chart reviewed Patient is:: awake, verbal, agitated, confused, other (having Mood swings and Psychotic symptoms.) Patient Complaints of:: other (patient is combative.) Per staff patient has:: no adverse event, no episodes of fall Internal Medicine Objective - Results Result Diagrams: 10/17/18 06:11 10/17/18 06:11 Recent Labs: Laboratory Last Values WBC 7.3 Th/cmm (4.8-10.8) 10/17/18 06:11 RBC 5.17 Mil/cmm (3.80-5.80) 10/17/18 06:11 Hgb 15.0 gm/dL (12-16) 10/17/18 06:11 Hct 45.8 % (41.0-60) 10/17/18 06:11 MCV 88.7 fl (80-99) 10/17/18 06:11 MCH 29.0 pg (27.0-31.0) 10/17/18 06:11 MCHC Differential 32.7 pg (28.0-36.0) 10/17/18 06:11 RDW 12.3 % (11.5-20.0) 10/17/18 06:11 Plt Count 285 Th/cmm (150-400) 10/17/18 06:11 MPV 8.0 fl 10/17/18 06:11 Neutrophils % 47.8 % (40.0-80.0) 10/17/18 06:11 Lymphocytes % 39.9 % (20.0-50.0) 10/17/18 06:11 Monocytes % 9.6 % (2.0-10.0) 10/17/18 06:11 Eosinophils % 2.6 % (0.0-5.0) 10/17/18 06:11 Basophils % 0.1 % (0.0-2.0) 10/17/18 06:11 Sodium 141 mEq/L (136-145) 10/17/18 06:11 Potassium 4.2 mEq/L (3.5-5.1) 10/17/18 06:11 Chloride 107 mEq/L (98-107) 10/17/18 06:11 Carbon Dioxide 29.8 mEq/L (21.0-31.0) 10/17/18 06:11 Anion Gap 8.4 (7.0-16.0) 10/17/18 06:11 BUN 13 mg/dL (7-25) 10/17/18 06:11 Creatinine 0.8 mg/dL (0.7-1.3) 10/17/18 06:11 Est GFR ( Amer) > 60.0 ml/min (>90) 10/17/18 06:11 Est GFR (Non-Af Amer) > 60.0 ml/min 10/17/18 06:11 BUN/Creatinine Ratio 16.3 10/17/18 06:11 Glucose 101 mg/dL (70-105) 10/17/18 06:11 Calcium 8.8 mg/dL (8.6-10.3) 10/17/18 06:11 Total Bilirubin 0.3 mg/dL (0.3-1.0) 10/17/18 06:11 AST 11 U/L (13-39) L 10/17/18 06:11 ALT 8 U/L (7-52) 10/17/18 06:11 Alkaline Phosphatase 74 U/L (34-104) 10/17/18 06:11 Total Protein 6.3 gm/dL (6.0-8.3) 10/17/18 06:11 Albumin 3.7 gm/dL (4.2-5.5) L 10/17/18 06:11 Globulin 2.6 gm/dL 10/17/18 06:11 Albumin/Globulin Ratio 1.4 (1.0-1.8) 10/17/18 06:11 Triglycerides 105 mg/dL (<150) 10/18/18 08:35 Cholesterol 101 mg/dL (<200) 10/18/18 08:35 LDL Cholesterol Direct 63 mg/dL (75-193) L 10/18/18 08:35 HDL Cholesterol 36 mg/dL (23-92) 10/18/18 08:35 Urine Source CLEAN C 10/16/18 22:00 Urine Color YELLOW 10/16/18 22:00 Urine Clarity SLIGHT HAZY (CLEAR) 10/16/18 22:00 Urine pH 6.5 (4.6 - 8.0) 10/16/18 22:00 Ur Specific [place] 1.015 (1.005-1.030) 10/16/18 22:00 Urine Protein NEGATIVE mg/dL (NEGATIVE) 10/16/18 22:00 Urine Glucose (UA) NEGATIVE mg/dL (NEGATIVE) 10/16/18 22:00 Urine Ketones NEGATIVE mg/dL (NEGATIVE) 10/16/18 22:00 Urine Blood NEGATIVE (NEGATIVE) 10/16/18 22:00 Urine Nitrate NEGATIVE (NEGATIVE) 10/16/18 22:00 Urine Bilirubin NEGATIVE (NEGATIVE) 10/16/18 22:00 Urine Urobilinogen 0.2 E.U./dL (0.2 - 1.0) 10/16/18 22:00 Ur Leukocyte Esterase SMALL (NEGATIVE) H 10/16/18 22:00 Urine RBC NONE SEEN /hpf (0-5) 10/16/18 22:00 Urine WBC 0-2 /hpf (0-5) 10/16/18 22:00 Ur Epithelial Cells NONE SEEN /lpf (FEW) 10/16/18 22:00 Other Crystals Not Reportable 10/16/18 22:00 Urine Bacteria NONE SEEN /hpf (NONE SEEN) 10/16/18 22:00 - Physical Exam Vitals and I&O: Vital Signs Temp 97.1 F 10/22/18 20:00 Pulse 77 10/22/18 20:00 Resp 20 10/22/18 20:00 BP 114/74 10/22/18 20:00 Pulse Ox 97 10/22/18 20:00 Intake & Output 10/22/18 10/23/18 10/23/18 18:59 06:59 18:59 Intake Total 900 470 Balance 900 470 Intake: Oral 900 470 Other: # Voids 3 2 # Bowel Movements 1 Active Medications: Current Medications Acetaminophen (Tylenol) 650 mg PO Q4H PRN PRN Reason: Pain Or Fever above 101 Stop: 12/16/18 02:26 Last Admin: 10/23/18 09:05 Dose: 650 mg Aripiprazole (Abilify) 20 mg PO HS [facility]; Protocol Stop: 12/20/18 20:59 Last Admin: 10/22/18 21:04 Dose: 20 mg Clonazepam (Klonopin) 0.5 mg PO BID [facility]; Protocol Stop: 12/16/18 08:59 Last Admin: 10/23/18 09:04 Dose: 0.5 mg Divalproex Sodium (Depakote Dr) 250 mg PO BID [facility]; Protocol Stop: 12/20/18 08:59 Last Admin: 10/23/18 09:05 Dose: 250 mg Lorazepam (Ativan) 1 mg PO Q12HR PRN; Protocol PRN Reason: Agitation Stop: 12/16/18 02:26 Last Admin: 10/20/18 20:49 Dose: 1 mg Temazepam (Restoril) 15 mg PO HS PRN; Protocol PRN Reason: Insomnia Stop: 12/16/18 15:38 Last Admin: 10/22/18 21:04 Dose: 15 mg General: demented HEENT: NC/AT Neck: Supple Lungs: CTAB Cardiovascular: RRR, Normal S1, Normal S2 Abdomen: soft Extremities: clear Neurological: no change Internal Medicine Assmt/Plan - Assessment Assessment: Schizoaffective disorder Mood swings and Psychosis. - Plan Plan: as per psych will monitor Nutritional Asmnt/Malnutr-PDOC - Dietary Evaluation Malnutrition Findings (Please click <Entered> for more info): see orders
--- NOTE | 2018-10-23 23:38 | Progress Notes ---
DATE: 10/23/2018 SUBJECTIVE: Staff was spoken to. The patient is interviewed. Mood is noted to be irritable. Affect is constricted. Insight and judgment at this time are noted to be impaired. Impulse control noted to be limited. Coping clots to be limited. The patient has been stating that the Depakote is suing him down. The patient has been very argumentative in a manic and the Depakote seems to be helping the patient. ASSESSMENT: The patient is awaiting placement. PLAN: To continue the patient with the supportive therapy, encouraged the patient to verbalize the concerns rather than to act out. JOB# [id number]
[2018-10-24] MEDS: Multivitamin w/ Minerals Tab PO SCH (08:33)
--- NOTE | 2018-10-24 13:26 | Progress Notes ---
DATE: 10/24/2018 SUBJECTIVE: Staff was spoken to. The patient is interviewed. Mood is noted to be irritable. Affect is constricted. The patient's mood swings are coming under control, but however, the patient states that he does not like Depakote because he is a happy man and it is calming him down too much. No side effects to the medications are noted at this time. ASSESSMENT: The patient's mood swings are coming under control. PLAN: To continue the patient with the supportive therapy and await for placement. JOB# [id number]
--- NOTE | 2018-10-24 17:35 | Progress Notes ---
DATE: 10/24/2018 SUBJECTIVE: The patient was seen in his room. The patient appears to be guarded, frustrated, easily gets irritable and paranoid. Otherwise, the patient appears to be in no acute distress. OBJECTIVE: VITAL SIGNS: Temperature 97.8, heart rate 82, blood pressure 94/61, respirations 19, and 96% on room air. HEENT: Head is atraumatic and normocephalic. Eyes: Bilateral conjunctivae are clear. Bilateral pupils are equally round and reactive. NECK: Supple. No JVD. CARDIOVASCULAR: S1 and S2 without murmur. PULMONARY: Clear to auscultation. GASTROINTESTINAL: Soft and nontender without guarding. Positive bowel sounds. MUSCULOSKELETAL: No clubbing. No cyanosis noted. ASSESSMENT: Schizoaffective disorder. PLAN: We will continue to keep the patient inpatient psychiatric unit. We will followup with a psychiatrist to monitor the patient's condition and behavior. Treatment plans were discussed with the patient's nurse. Treatment plans were discussed with Dr. Chau. JOB# [id number]
--- NOTE | 2018-10-24 23:35 | Progress Notes ---
DATE: 10/23/2018 PSYCHOLOGY PROGRESS NOTE SUBJECTIVE: The patient is seen and is interviewed. Case is discussed with staff. The patient presents as irritable; however, mood fluctuations seem to be lessening. The patient reports that he is not depressed and that he is generally a happy person. The staff indicates the patient has become more compliant with staff direction as well as his treatment plan. OBJECTIVE: Mood is irritable. Affect is constricted. Thought process shows to be somewhat confused, but linear. The patient denied any auditory or visual hallucinations or any delusions. The patient denies any suicidal ideation. The patient's behavior seems more goal oriented. ASSESSMENT AND PLAN: Mood fluctuations are lessening. We continue to provide supportive psychotherapy, which includes reality integration as well as anxiety reduction. The patient was able to follow through and rehearse the skill in session. We provided coping strategies for phase of life issues as well as for chronic mental illness. We provided positive reinforcement for the patient to stay compliant with his treatment. We continued to encourage the patient to verbalize his concerns and demonstrate emotional and self-regulation versus verbally acting out. We will follow up in 2-3 days to continue the present treatment if the patient is still admitted. JOB# [id number] MATTHEW
[2018-10-25] MEDS: Multivitamin w/ Minerals Tab PO SCH (09:19)
--- NOTE | 2018-10-25 12:44 | Internal Medicine Prog Note ---
Internal Medicine Subjective - Subjective Patient seen and examined:: chart reviewed Patient is:: awake, verbal, agitated, confused, other (pt irritable with mood swings ) Patient Complaints of:: other (patient is combative.) Per staff patient has:: no adverse event, no episodes of fall Internal Medicine Objective - Results Result Diagrams: 10/17/18 06:11 10/17/18 06:11 Recent Labs: Laboratory Last Values WBC 7.3 Th/cmm (4.8-10.8) 10/17/18 06:11 RBC 5.17 Mil/cmm (3.80-5.80) 10/17/18 06:11 Hgb 15.0 gm/dL (12-16) 10/17/18 06:11 Hct 45.8 % (41.0-60) 10/17/18 06:11 MCV 88.7 fl (80-99) 10/17/18 06:11 MCH 29.0 pg (27.0-31.0) 10/17/18 06:11 MCHC Differential 32.7 pg (28.0-36.0) 10/17/18 06:11 RDW 12.3 % (11.5-20.0) 10/17/18 06:11 Plt Count 285 Th/cmm (150-400) 10/17/18 06:11 MPV 8.0 fl 10/17/18 06:11 Neutrophils % 47.8 % (40.0-80.0) 10/17/18 06:11 Lymphocytes % 39.9 % (20.0-50.0) 10/17/18 06:11 Monocytes % 9.6 % (2.0-10.0) 10/17/18 06:11 Eosinophils % 2.6 % (0.0-5.0) 10/17/18 06:11 Basophils % 0.1 % (0.0-2.0) 10/17/18 06:11 Sodium 141 mEq/L (136-145) 10/17/18 06:11 Potassium 4.2 mEq/L (3.5-5.1) 10/17/18 06:11 Chloride 107 mEq/L (98-107) 10/17/18 06:11 Carbon Dioxide 29.8 mEq/L (21.0-31.0) 10/17/18 06:11 Anion Gap 8.4 (7.0-16.0) 10/17/18 06:11 BUN 13 mg/dL (7-25) 10/17/18 06:11 Creatinine 0.8 mg/dL (0.7-1.3) 10/17/18 06:11 Est GFR ( Amer) > 60.0 ml/min (>90) 10/17/18 06:11 Est GFR (Non-Af Amer) > 60.0 ml/min 10/17/18 06:11 BUN/Creatinine Ratio 16.3 10/17/18 06:11 Glucose 101 mg/dL (70-105) 10/17/18 06:11 Calcium 8.8 mg/dL (8.6-10.3) 10/17/18 06:11 Total Bilirubin 0.3 mg/dL (0.3-1.0) 10/17/18 06:11 AST 11 U/L (13-39) L 10/17/18 06:11 ALT 8 U/L (7-52) 10/17/18 06:11 Alkaline Phosphatase 74 U/L (34-104) 10/17/18 06:11 Total Protein 6.3 gm/dL (6.0-8.3) 10/17/18 06:11 Albumin 3.7 gm/dL (4.2-5.5) L 10/17/18 06:11 Globulin 2.6 gm/dL 10/17/18 06:11 Albumin/Globulin Ratio 1.4 (1.0-1.8) 10/17/18 06:11 Triglycerides 105 mg/dL (<150) 10/18/18 08:35 Cholesterol 101 mg/dL (<200) 10/18/18 08:35 LDL Cholesterol Direct 63 mg/dL (75-193) L 10/18/18 08:35 HDL Cholesterol 36 mg/dL (23-92) 10/18/18 08:35 Urine Source CLEAN C 10/16/18 22:00 Urine Color YELLOW 10/16/18 22:00 Urine Clarity SLIGHT HAZY (CLEAR) 10/16/18 22:00 Urine pH 6.5 (4.6 - 8.0) 10/16/18 22:00 Ur Specific [place] 1.015 (1.005-1.030) 10/16/18 22:00 Urine Protein NEGATIVE mg/dL (NEGATIVE) 10/16/18 22:00 Urine Glucose (UA) NEGATIVE mg/dL (NEGATIVE) 10/16/18 22:00 Urine Ketones NEGATIVE mg/dL (NEGATIVE) 10/16/18 22:00 Urine Blood NEGATIVE (NEGATIVE) 10/16/18 22:00 Urine Nitrate NEGATIVE (NEGATIVE) 10/16/18 22:00 Urine Bilirubin NEGATIVE (NEGATIVE) 10/16/18 22:00 Urine Urobilinogen 0.2 E.U./dL (0.2 - 1.0) 10/16/18 22:00 Ur Leukocyte Esterase SMALL (NEGATIVE) H 10/16/18 22:00 Urine RBC NONE SEEN /hpf (0-5) 10/16/18 22:00 Urine WBC 0-2 /hpf (0-5) 10/16/18 22:00 Ur Epithelial Cells NONE SEEN /lpf (FEW) 10/16/18 22:00 Other Crystals Not Reportable 10/16/18 22:00 Urine Bacteria NONE SEEN /hpf (NONE SEEN) 10/16/18 22:00 - Physical Exam Vitals and I&O: Vital Signs Temp 97.5 F 10/25/18 08:00 Pulse 66 10/25/18 08:00 Resp 18 10/25/18 08:00 BP 113/75 10/25/18 08:00 Pulse Ox 95 10/25/18 08:00 Intake & Output 10/24/18 10/25/18 10/25/18 18:59 06:59 18:59 Intake Total 1200 240 Balance 1200 240 Intake: Oral 1200 240 Other: # Voids 4 2 # Bowel Movements 1 Active Medications: Current Medications Acetaminophen (Tylenol) 650 mg PO Q4H PRN PRN Reason: Pain Or Fever above 101 Stop: 12/16/18 02:26 Last Admin: 10/23/18 09:05 Dose: 650 mg Aripiprazole (Abilify) 20 mg PO HS CHRISTY; Protocol Stop: 12/20/18 20:59 Last Admin: 10/24/18 20:52 Dose: 20 mg Divalproex Sodium (Depakote Dr) 250 mg PO BID CHRISTY; Protocol Stop: 12/20/18 08:59 Last Admin: 10/25/18 09:20 Dose: 250 mg General: demented HEENT: NC/AT Neck: Supple Lungs: CTAB Cardiovascular: RRR, Normal S1, Normal S2 Abdomen: soft Extremities: clear Neurological: no change Internal Medicine Assmt/Plan - Assessment Assessment: Schizoaffective disorder Mood swings and Psychosis. - Plan Plan: as per psych will monitor Nutritional Asmnt/Malnutr-PDOC - Dietary Evaluation Malnutrition Findings (Please click <Entered> for more info): Nutritional Asmnt/Malnutrition Start: 10/23/18 15: 18 Text: Status: Complete Freq: Protocol: Document 10/23/18 15:18 LCHENG (Rec: 10/23/18 15:34 [email or web address] [email or web address]) Nutritional Asmnt/Malnutrition Patient General Information Nutritional Screening Low Risk Diagnosis bipolar disorder, psychosis Pertinent Medical Hx/Surgical Hx HARPREET Subjective Information Pt seen in his room. Per EMR, PO intake 100%. [employer] stated pt eats everything. Current Diet Order/ Nutrition Support HARPREET Pertinent Medications reviewed Pertinent Labs 10/17 Alb 3.7 Nutritional Hx/Data Height 1.73 m Height (Calculated Centimeters) 172.7 Current Weight (lbs) 75.75 kg Weight (Calculated Kilograms) 75.7 Weight (Calculated Grams) 66023.9 [place] Body Weight 154 Body Mass Index (BMI) 25.4 Weight Status Overweight GI Symptoms GI Symptoms None Last BM 10/22 Difficult in: None Skin Integrity/Comment: intact Current %PO Good (75-100%) Estimated Nutritional Goals BEE in Kcals: Using Current wt Calories/Kcals/Kg 23-27 Kcals Calculated 8602-0365 Protein: Using Current wt Protein g/k.8-1 Protein Calculated 61-76 Fluid: ml 1748-2052ml (1ml/kcal) Nutritional Problem No current Nutrition Prob Problem N?A Malnutrition Alert Is there a minimum of two criteria No selected? Query Text:Check all the applicable criteria. A minimum of two criteria are recommended for diagnosis of either severe or non-severe malnutrition. Malnutrition Related to Morbid Obesity Malnutrition related to morbid obesity No Intervention/Recommendation Comments 1. Continue with HARPREET diet as ordered. 2. Monitor PO intake, wt, labs and skin integrity 3. F/U as low risk in 7 days Expected Outcomes/Goals Expected Outcomes/Goals 1. PO intake to meet at least 75% of nutritional needs. 2. Wt stability, skin to remain intact, labs to approach WNL.
--- NOTE | 2018-10-25 20:09 | Progress Notes ---
DATE: 10/25/2018 SUBJECTIOVE: Staff was spoken to. The patient is interviewed. Mood is noted to be irritable. Affect is constricted. The patient is stating that he has been complying with the medications and the unit rules but still he is frustrated for not being able to find a place for him to go, coping skills at this time are noted to be poor. No side effects to the medications are noted. ASSESSMENT: The patient's mood swings are coming under control and the patient is awaiting placement. PLAN: To continue the patient with the supportive therapy and followup. [facility]# [id number]
[2018-10-26] MEDS: Multivitamin w/ Minerals Tab PO SCH (09:37)
--- NOTE | 2018-10-26 09:41 | Internal Medicine Prog Note ---
Internal Medicine Subjective - Subjective Service Date: 10/26/18 Patient seen and examined:: chart reviewed Patient is:: awake, verbal, agitated, confused, other (pt continues to be very irritable with mood swings ) Patient Complaints of:: other (patient states he is frustrated due to waiting on placement, coping skills at this time remain poor.) Per staff patient has:: no adverse event, no episodes of fall Internal Medicine Objective - Results Result Diagrams: 10/17/18 06:11 10/17/18 06:11 Recent Labs: Laboratory Last Values WBC 7.3 Th/cmm (4.8-10.8) 10/17/18 06:11 RBC 5.17 Mil/cmm (3.80-5.80) 10/17/18 06:11 Hgb 15.0 gm/dL (12-16) 10/17/18 06:11 Hct 45.8 % (41.0-60) 10/17/18 06:11 MCV 88.7 fl (80-99) 10/17/18 06:11 MCH 29.0 pg (27.0-31.0) 10/17/18 06:11 MCHC Differential 32.7 pg (28.0-36.0) 10/17/18 06:11 RDW 12.3 % (11.5-20.0) 10/17/18 06:11 Plt Count 285 Th/cmm (150-400) 10/17/18 06:11 MPV 8.0 fl 10/17/18 06:11 Neutrophils % 47.8 % (40.0-80.0) 10/17/18 06:11 Lymphocytes % 39.9 % (20.0-50.0) 10/17/18 06:11 Monocytes % 9.6 % (2.0-10.0) 10/17/18 06:11 Eosinophils % 2.6 % (0.0-5.0) 10/17/18 06:11 Basophils % 0.1 % (0.0-2.0) 10/17/18 06:11 Sodium 141 mEq/L (136-145) 10/17/18 06:11 Potassium 4.2 mEq/L (3.5-5.1) 10/17/18 06:11 Chloride 107 mEq/L (98-107) 10/17/18 06:11 Carbon Dioxide 29.8 mEq/L (21.0-31.0) 10/17/18 06:11 Anion Gap 8.4 (7.0-16.0) 10/17/18 06:11 BUN 13 mg/dL (7-25) 10/17/18 06:11 Creatinine 0.8 mg/dL (0.7-1.3) 10/17/18 06:11 Est GFR ( Amer) > 60.0 ml/min (>90) 10/17/18 06:11 Est GFR (Non-Af Amer) > 60.0 ml/min 10/17/18 06:11 BUN/Creatinine Ratio 16.3 10/17/18 06:11 Glucose 101 mg/dL (70-105) 10/17/18 06:11 Calcium 8.8 mg/dL (8.6-10.3) 10/17/18 06:11 Total Bilirubin 0.3 mg/dL (0.3-1.0) 10/17/18 06:11 AST 11 U/L (13-39) L 10/17/18 06:11 ALT 8 U/L (7-52) 10/17/18 06:11 Alkaline Phosphatase 74 U/L (34-104) 10/17/18 06:11 Total Protein 6.3 gm/dL (6.0-8.3) 10/17/18 06:11 Albumin 3.7 gm/dL (4.2-5.5) L 10/17/18 06:11 Globulin 2.6 gm/dL 10/17/18 06:11 Albumin/Globulin Ratio 1.4 (1.0-1.8) 10/17/18 06:11 Triglycerides 105 mg/dL (<150) 10/18/18 08:35 Cholesterol 101 mg/dL (<200) 10/18/18 08:35 LDL Cholesterol Direct 63 mg/dL (75-193) L 10/18/18 08:35 HDL Cholesterol 36 mg/dL (23-92) 10/18/18 08:35 Urine Source CLEAN C 10/16/18 22:00 Urine Color YELLOW 10/16/18 22:00 Urine Clarity SLIGHT HAZY (CLEAR) 10/16/18 22:00 Urine pH 6.5 (4.6 - 8.0) 10/16/18 22:00 Ur Specific [place] 1.015 (1.005-1.030) 10/16/18 22:00 Urine Protein NEGATIVE mg/dL (NEGATIVE) 10/16/18 22:00 Urine Glucose (UA) NEGATIVE mg/dL (NEGATIVE) 10/16/18 22:00 Urine Ketones NEGATIVE mg/dL (NEGATIVE) 10/16/18 22:00 Urine Blood NEGATIVE (NEGATIVE) 10/16/18 22:00 Urine Nitrate NEGATIVE (NEGATIVE) 10/16/18 22:00 Urine Bilirubin NEGATIVE (NEGATIVE) 10/16/18 22:00 Urine Urobilinogen 0.2 E.U./dL (0.2 - 1.0) 10/16/18 22:00 Ur Leukocyte Esterase SMALL (NEGATIVE) H 10/16/18 22:00 Urine RBC NONE SEEN /hpf (0-5) 10/16/18 22:00 Urine WBC 0-2 /hpf (0-5) 10/16/18 22:00 Ur Epithelial Cells NONE SEEN /lpf (FEW) 10/16/18 22:00 Other Crystals Not Reportable 10/16/18 22:00 Urine Bacteria NONE SEEN /hpf (NONE SEEN) 10/16/18 22:00 - Physical Exam Vitals and I&O: Vital Signs Temp 98.8 F 10/25/18 20:46 Pulse 85 10/25/18 20:46 Resp 20 10/25/18 20:46 BP 112/74 10/25/18 20:46 Pulse Ox 97 10/25/18 20:46 Intake & Output 10/25/18 10/26/18 10/26/18 18:59 06:59 18:59 Intake Total 500 240 Balance 500 240 Intake: Oral 500 240 Other: # Voids 3 1 Active Medications: Current Medications Acetaminophen (Tylenol) 650 mg PO Q4H PRN PRN Reason: Pain Or Fever above 101 Stop: 12/16/18 02:26 Last Admin: 10/23/18 09:05 Dose: 650 mg Aripiprazole (Abilify) 20 mg PO HS [facility]; Protocol Stop: 12/20/18 20:59 Last Admin: 10/25/18 20:35 Dose: 20 mg Divalproex Sodium (Depakote Dr) 250 mg PO BID [facility]; Protocol Stop: 12/20/18 08:59 Last Admin: 10/25/18 16:24 Dose: 250 mg Temazepam (Restoril) 15 mg PO HS PRN; Protocol PRN Reason: Insomnia Stop: 12/24/18 21:55 Last Admin: 10/25/18 22:05 Dose: 15 mg General: demented HEENT: NC/AT Neck: Supple Lungs: CTAB Cardiovascular: RRR, Normal S1, Normal S2 Abdomen: soft Extremities: clear Neurological: no change, disorganized Internal Medicine Assmt/Plan - Assessment Assessment: Schizoaffective disorder Mood swings and Psychosis. - Plan Plan: as per psych will monitor Nutritional Asmnt/Malnutr-PDOC - Dietary Evaluation Malnutrition Findings (Please click <Entered> for more info): Nutritional Asmnt/Malnutrition Start: 10/23/18 15: 18 Text: Status: Complete Freq: Protocol: Document 10/23/18 15:18 LCHENG (Rec: 10/23/18 15:34 LCHENG [email or web address]) Nutritional Asmnt/Malnutrition Patient General Information Nutritional Screening Low Risk Diagnosis bipolar disorder, psychosis Pertinent Medical Hx/Surgical Hx HARPREET Subjective Information Pt seen in his room. Per EMR, PO intake 100%. 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 Current Diet Order/ Nutrition Support HARPREET Pertinent Medications reviewed Pertinent Labs 10/17 Alb 3.7 Nutritional Hx/Data Height 1.73 m Height (Calculated Centimeters) 172.7 Current Weight (lbs) 75.75 kg Weight (Calculated Kilograms) 75.7 Weight (Calculated Grams) 21536.9 [place] Body Weight 154 Body Mass Index (BMI) 25.4 Weight Status Overweight GI Symptoms GI Symptoms None Last BM 10/22 Difficult in: None Skin Integrity/Comment: intact Current %PO Good (75-100%) Estimated Nutritional Goals BEE in Kcals: Using Current wt Calories/Kcals/Kg 23-27 Kcals Calculated 7920-9295 Protein: Using Current wt Protein g/k.8-1 Protein Calculated 61-76 Fluid: ml 1748-2052ml (1ml/kcal) Nutritional Problem No current Nutrition Prob Problem N?A Malnutrition Alert Is there a minimum of two criteria No selected? Query Text:Check all the applicable criteria. A minimum of two criteria are recommended for diagnosis of either severe or non-severe malnutrition. Malnutrition Related to Morbid Obesity Malnutrition related to morbid obesity No Intervention/Recommendation Comments 1. Continue with HARPREET diet as ordered. 2. Monitor PO intake, wt, labs and skin integrity 3. F/U as low risk in 7 days Expected Outcomes/Goals Expected Outcomes/Goals 1. PO intake to meet at least 75% of nutritional needs. 2. Wt stability, skin to remain intact, labs to approach WNL.
--- NOTE | 2018-10-27 04:27 | Progress Notes ---
DATE: 10/26/2018 PSYCHIATRIC PROGRESS NOTE SUBJECTIVE: Staff was spoken to. The patient is interviewed. Mood is noted to be anxious. Affect is appropriate. Not suicidal or homicidal. Insight and judgment are fair. Impulse control is also noted to be fair. Mood swings are coming under control. The patient is motivated to seek treatment on an outpatient basis. ASSESSMENT: The patient is stabilizing. PLAN: To discharge the patient today for followup on outpatient basis. JOB# [id number]
--- NOTE | 2018-10-28 03:11 | Progress Notes ---
DATE: 10/26/2018 PSYCHOLOGY PROGRESS NOTE SUBJECTIVE: The patient is seen and is interviewed. Case is discussed with staff. The patient presents as somewhat guarded; however, the staff indicates the patient's behavior has become more compliant with care. The patient is asking about discharging today. Mood swings appear to be coming under control. OBJECTIVE: Mood is mildly anxious. Affect is appropriate. Thought process shows to be concrete. The patient denied any hallucinations or delusions. The patient's behavior has been improving and is more goal oriented. ASSESSMENT AND PLAN: The patient seems to be improving and stabilizing. We provided coping strategies for phase of life issues as well as for chronic mental illness. We encourage the patient to continue to demonstrate emotional and self-regulation and verbalizes concerns versus acting out. We provided positive reinforcement and supportive therapy for the patient to stay compliant with all aspects of his care and treatment. We provided stress management to reduce anxiety and increase frustration tolerance. No followup is indicated as staff reports the patient is most likely discharging today. Thank you, Dr. Joseph, for this consult and the opportunity to participate in this patient's care. JOB# [id number] MATTHEW
== END 2018-10-26 14:45 | DRG 885 ==
LOC: ER 21:39 → GERO 10-17 00:50
DX: F25.9 Schizoaffective disorder, unspecified (principal); F31.9 Bipolar disorder, unspecified; F29 Unspecified psychosis not due to a substance or known physiological condition; E11.9 Type 2 diabetes mellitus without complications; I10 Essential (primary) hypertension; Z88.8 Allergy status to other drugs, medicaments and biological substances
CPT/HCPCS: 36415-UA; 80053-TC; 80061-TC; 81001-TC; 83036-90; 85025-TC; 90899; G0410; Z7610